=== PATIENT | female | born 2000 | race Two or more races ===

== ENCOUNTER 2020-03-08 00:57 | Emergency (ER) | payer MEDICAID ==
[~2020-03-08] VITALS: Ht 172.7 cm; Wt 54.0 kg
[2020-03-08] MEDS ORDERED: ibuprofen tablet 400 MG TABLET PO ONE (01:20)
[2020-03-08 02:02] VITALS: BP 100/60
== END 2020-03-08 02:03 | disposition home or self-care (01) ==
LOC: ER 00:59
DX: R07.89 Other chest pain (principal); F17.200 Nicotine dependence, unspecified, uncomplicated
CPT/HCPCS: 71045; 99283